=== PATIENT | male | born 1985 | race Hispanic/Latino ===

== ENCOUNTER 2016-12-29 14:13 | Emergency (ER) | payer OTHER ==
[2016-12-29 14:45] VITALS: BP 146/85; PULSE 83; TEMP 98; O2SAT 97
--- NOTE | 2016-12-29 16:12 | CT ---
PROCEDURE: CT HEAD WITHOUT CONTRAST. HISTORY: r/o fx ICH COMPARISON: None available. TECHNIQUE: Axial computed tomography images were obtained through the head/brain without intravenous contrast. Radiation dose: Total exam DLP = 85.68 mGy-cm. This CT exam was performed using one or more of the following dose reduction techniques: Automated exposure control, adjustment of the mA and/or kV according to patient size, and/or use of iterative reconstruction technique. FINDINGS: HEMORRHAGE: No intracranial hemorrhage. BRAIN: No mass effect or edema. No atrophy or chronic microvascular ischemic changes. VENTRICLES: No hydrocephalus. CALVARIUM: Unremarkable. PARANASAL SINUSES: Unremarkable as visualized. No significant inflammatory changes. MASTOID AIR CELLS: Unremarkable as visualized. No inflammatory changes. OTHER FINDINGS: Deviated nasal septum. IMPRESSION: No acute intracranial pathology identified.
--- NOTE | 2016-12-29 16:20 | CT ---
CT orbits without IV contrast Indication: Rule out fracture Comparison: None available Technique: Axial computed tomography images were obtained of the orbits without the use of intravenous contrast. Coronal and sagittal reformatted images were generated and reviewed. This CT exam was performed using 1 or more of the falling dose reduction techniques: Automated exposure control, adjustment of the MAA and/or kV according to patient size, and/or use of iterative reconstruction technique. Radiation dose: Total exam DLP = 832.24 mGy-cm. Findings: The facial bones appear intact without acute fracture. The orbits appear unremarkable. The temporomandibular joints are located. The visualized brain appears unremarkable. The paranasal sinuses appear clear without air-fluid levels. Mastoid air cells appear clear. Impression: Unremarkable examination of the orbits.
[2016-12-29 16:44] VITALS: RESP 20
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
== END 2016-12-29 16:42 | disposition home or self-care (01) ==
LOC: C.ER 14:13
DX: S00.83XA Contusion of other part of head, initial encounter (principal); Y04.0XXA Assault by unarmed brawl or fight, initial encounter